=== PATIENT | female | born 1970 | race Two or more races ===

== ENCOUNTER 2025-02-07 16:46 | Outpatient (CLI) | payer OTHER ==
[2025-02-07 18:15] LABS: BASO % 0.5 % (0.1-1.2); EOS # 0.08 (0.04-0.54); EOS % 0.9 % (0.7-7.0); LYMPH # 2.57 (1.18-3.74); LYMPH % 29.9 % (19.3-53.1); MEAN PLATELET VOLUME 9.90 fl (9.4-12.4); MONO # 0.72 (0.24-0.82); MONO % 8.4 % (4.7-12.5); NEUT # 5.16 (1.56-6.13); NEUT % 60.0 % (34.0-71.1); RED CELL DISTRIBUTION WIDTH 12.8 % (11.6-14.4)
[2025-02-09 09:08] LABS: ESTRADIOL SERUM 134.0 pg/mL (.); PROGESTERONA 24.6 ng/mL (.); PROLACTIN 4.0 ng/mL (3.6-25.2)
== END 2025-02-07 16:52 | disposition home or self-care (01) ==
LOC: LAB 16:46
PROVIDERS: ATTEND Student in an Organized Health Care Education/Training Program
DX: D64.9 Anemia, unspecified (principal); Z12.11 Encounter for screening for malignant neoplasm of colon; E03.8 Other specified hypothyroidism; N95.1 Menopausal and female climacteric states; I10 Essential (primary) hypertension; C51.9 Malignant neoplasm of vulva, unspecified; A64 Unspecified sexually transmitted disease; N39.0 Urinary tract infection, site not specified; R97.8 Other abnormal tumor markers; R79.89 Other specified abnormal findings of blood chemistry; E55.9 Vitamin D deficiency, unspecified; A60.9 Anogenital herpesviral infection, unspecified

== ENCOUNTER 2025-02-21 09:24 | Outpatient (CLI) | payer OTHER ==
[2025-02-21 11:09] LABS: ALT/SGPT 19.0 U/L (12-78); AST/SGOT 11.0 U/L (15-37); BILIRUBIN TOTAL 0.39 mg/dL (0.3-1.2); BUN CREA RATIO 25.0 (7.0-25.0); CHOL HDL RATIO 5.7 (0-5.0); CREATININE SERUM 0.6 mg/dL (0.55-1.02); GFR 104.57; GLOBULINA 3.6 G/DL (2.4-3.5); GLUCOSE FASTING 93.0 mg/dL (65-100); HDL 40.0 mg/dl (40-60); LDL 136.0 mg/dl (0-130); OSMOLALITY SERUM 280.0 MOSM/KG (275-295); VLDL 49.0 (0-39)
[2025-02-21 11:29] LABS: ob NEGATIVE (NEGATIVE)
== END 2025-02-21 09:25 | disposition home or self-care (01) ==
LOC: LAB 09:24
PROVIDERS: ATTEND Student in an Organized Health Care Education/Training Program
DX: I10 Essential (primary) hypertension (principal); E78.5 Hyperlipidemia, unspecified

== ENCOUNTER 2025-02-21 10:13 | Outpatient (CLI) | payer OTHER | END 2025-02-21 10:14 | disposition home or self-care (01) | LOC: RAD 10:13 | PROVIDERS: ATTEND Internal Medicine | DX: M54.50 Low back pain, unspecified (principal) ==